=== PATIENT | female | born 1965 ===

== ENCOUNTER 2021-05-16 11:45 | Inpatient (IN) | payer OTHER ==
[~2021-05-16] VITALS: Ht 165.1 cm; Wt 140.6 kg
[2021-05-16] MEDS ORDERED: SYNTHROID125 MCG PO (14:39)
[2021-05-16] MEDS ORDERED: HUMULIN 70100 UNIT/1 (14:40)
[2021-05-16] MEDS ORDERED: ATENOL PO (14:40)
[2021-05-16] MEDS ORDERED: JANUMET XR 50-1 EAC1 PO (14:40)
[2021-05-16] MEDS ORDERED: IRBESARTAN-HCT1 EACH PO (14:41)
[2021-05-16] MEDS ORDERED: FAMOTI PO (14:41)
[2021-05-18] MEDS ORDERED: ATENOLOL100 MG (13:18)
[2021-05-18] MEDS ORDERED: HUMULIN 70100 UNIT/2 (13:18)
[2021-05-18] MEDS ORDERED: FAMOTIDINE20 MG (13:18)
[2021-05-18] MEDS ORDERED: FLOVENT HFA12 G1 (13:18)
[2021-05-18] MEDS ORDERED: PRAVASTATIN SOD20 MG (13:19)
[2021-05-18] MEDS ORDERED: DOCUSATE SODIU100 MG (13:19)
== END 2021-05-19 13:09 | disposition home or self-care (01) | DRG 735 ==
LOC: O/R 05-18 06:26 → OB/GYN 05-18 11:45
PROVIDERS: ADMIT Obstetrics & Gynecology Gynecologic Oncology; ATTEND Obstetrics & Gynecology Gynecologic Oncology
PROC: 0UT94ZZ Resection of Uterus, Percutaneous Endoscopic Approach (ICD-10-PCS; 2021-05-18)
PROC: 0UT74ZZ Resection of Bilateral Fallopian Tubes, Percutaneous Endoscopic Approach (ICD-10-PCS; 2021-05-18)
PROC: 0UT24ZZ Resection of Bilateral Ovaries, Percutaneous Endoscopic Approach (ICD-10-PCS; 2021-05-18)
PROC: 07TC4ZZ Resection of Pelvis Lymphatic, Percutaneous Endoscopic Approach (ICD-10-PCS; principal; 2021-05-18 13:45)
DX: C54.1 Malignant neoplasm of endometrium (principal); Z20.822 Contact with and (suspected) exposure to COVID-19